=== PATIENT | female | born 1935 | race Two or more races ===

== ENCOUNTER 2017-10-05 07:26 | Inpatient (IN) | payer BC, MEDICARE ==
[~2017-10-05] VITALS: Ht 157.5 cm; Wt 59.0 kg
--- NOTE | 2017-10-05 07:30 | NUR ---
PATIENT BIB [facility] C/O RIGHT HIP PAIN, S/P GLF AT HOME. PATIENTS RIGHT LEG EXTERNALLY ROTATION AND SHORTENED. PATIENT IS A/OX 4. BREATHING EVEN AND UNLABORED. NO SOB. VITALS STABLE. SAFETY AND COMFORT MEASURES IN PLACE. AWAITING MD ORDERS.
[2017-10-05] MEDS ORDERED: HYDROMORPHONE INJ 0.5 MG/0.5 ML SYRINGE ONE ×2 (07:42→08:37)
[2017-10-05] MEDS ORDERED: ONDANSETRON HCL/PF 4 MG/2 ML VIAL ONE (07:42)
--- NOTE | 2017-10-05 07:48 | NUR ---
PATIENT MEDICATED PER MD ORDERS.
[2017-10-05 07:54] LABS: BASOPHILS % (AUTO) 0.5 % (0.0-2.0); EOSINOPHILS # (AUTO) 0.2 /CMM (0.0-0.7); EOSINOPHILS % (AUTO) 2.4 % (0.0-6.0); HEMATOCRIT 29 % (33-45); LYMPHOCYTES # (AUTO) 1.6 /CMM (0.8-4.8); LYMPHOCYTES % (AUTO) 18.8 % (20.0-44.0); MEAN CORPUSCULAR HEMOGLOBIN 32 PG (26.0-33.0); MEAN CORPUSCULAR HGB CONC 34 g/dl (31.0-36.0); MEAN CORPUSCULAR VOLUME 93 fL (82-100); MONOCYTES # (AUTO) 0.4 /CMM (0.1-1.30); MONOCYTES % (AUTO) 5.2 % (2.0-12.0); NEUTROPHILS # (AUTO) 6.1 /CMM (1.8-8.9); NEUTROPHILS % (AUTO) 73.1 % (43.0-81.0); PLATELET COUNT (AUTO) 104 /CMM (150-450); RDW COEFFICIENT OF VARIATION 15.8 (11.5-15.0); RED BLOOD CELL COUNT(AUTO) 3.18 MIL/uL (4.0-5.2); WHITE BLOOD COUNT (AUTO) 8.4 K/uL (4.3-11.0)
[2017-10-05] MEDS ORDERED: HYDROMORPHONE 1 MG/1 ML DISP.SYRIN IV ONE ×2 (08:00→09:00)
[2017-10-05] MEDS ORDERED: ONDANSETRON HCL/PF - ER 4 MG/2 ML VIAL IV ONE (08:00)
--- NOTE | 2017-10-05 08:02 | NUR ---
CIGAR MACHINE FEEDER AT BEDSIDE.
[2017-10-05 08:09] LABS: ALANINE AMINOTRANSFERASE 31 U/L (12-78); ALBUMIN 3.1 g/dL (3.4-5.0); ALKALINE PHOSPHATASE 127 U/L (46-116); ASPARTATE AMINOTRANSFERASE 31 U/L (15-37); BILIRUBIN,TOTAL 0.4 mg/dL (0.2-1.0); CARBON DIOXIDE 22 mmol/L (21-32); CHLORIDE 104 mmol/L (98-107); CREATININE 3.2 mg/dL (0.6-1.3); GLUCOSE 147 mg/dL (74-106); POTASSIUM 5.5 mmol/L (3.5-5.1); SODIUM SERUM 137 mmol/L (136-145); TOTAL PROTEIN, SERUM 7.1 g/dL (6.4-8.2)
[2017-10-05 08:11] LABS: UREA NITROGEN, BLOOD 93 mg/dL (7-18)
--- NOTE | 2017-10-05 08:19 | NUR ---
ANGÉLICA CALLED [phone] [facility] [employer] [address] BASS
--- NOTE | 2017-10-05 08:25 | NUR ---
CALLED [facility]
[2017-10-05] MEDS ORDERED: FURO-145 PO (08:27)
[2017-10-05] MEDS ORDERED: PRAM0.5T3 PO (08:27)
[2017-10-05] MEDS ORDERED: LIRA0.6P SQ (08:27)
[2017-10-05] MEDS ORDERED: LINA5TAB PO (08:27)
[2017-10-05] MEDS ORDERED: ISOS30TA6 PO (08:27)
[2017-10-05] MEDS ORDERED: CARV25TA2 PO (08:27)
[2017-10-05] MEDS ORDERED: CLOP75TA15 PO (08:27)
[2017-10-05] MEDS ORDERED: IV NS 0.9% 500 ML IV ONE (08:30)
--- NOTE | 2017-10-05 08:31 | NUR ---
16 FR orssi catheter inserted per sterile protocal. Immediate output 500ML of urine, yellow and clear.
[2017-10-05 08:34] LABS: INR 1.03 (0.87-1.13)
--- NOTE | 2017-10-05 08:40 | NUR ---
PATIENT ONCE AGAIN C/O PAIN. MD INFORMED, ORDERED REPEAT DOSE OF DILAUDID.
--- NOTE | 2017-10-05 09:14 | NUR ---
CALLED [phone] [facility] ITS [facility] CALL [id number]
[2017-10-05 09:21] LABS: APPEARANCE,URINE CLEAR (CLEAR); BILIRUBIN,URINE NEGATIVE (NEGATIVE); BLOOD, URINE NEGATIVE Ery/uL (NEGATIVE); COLOR,URINE YELLOW (YELLOW); KETONES,URINE NEGATIVE (NEGATIVE); LEUKOCYTE ESTERASE ,URINE NEGATIVE (NEGATIVE); NITRITE, URINE NEGATIVE (NEGATIVE); PH,URINE 5.5 (5.0-8.0); PROTEIN,URINE 2+ mg/dl (NEGATIVE); UGLUCOSE NEGATIVE (NEGATIVE); UROBILINOGEN,URINE 0.2 EU/dL (0.2)
--- NOTE | 2017-10-05 09:29 | NUR ---
PANEL ON-CALL PAGED
--- NOTE | 2017-10-05 09:30 | NUR ---
CALL BACK FROM DR Valentine AHUJA, WANTS PATIENT ADMITTED BY PANEL AND THEY WILL CONSULT
[2017-10-05 09:31] LABS: BACTERIA,URINE 2+ /HPF (None Seen); SQUAMOUS EPITHELIAL CELL,UR Few /HPF (None Seen); WBC,URINE NONE SEEN /HPF (0-3)
--- NOTE | 2017-10-05 10:43 | NUR ---
REPORT GIVEN TO FATOUMATA KU FOR ENDER UPON ADMISSION.
--- NOTE | 2017-10-05 10:59 | NUR ---
PATIENT TRANSPORTED TO [facility] VIA STRETCHER IN STABLE CONDITION. RN, FATOUMATA TO PROVIDE ENDER.
[2017-10-05 11:00] VITALS: BP 149/77
--- NOTE | 2017-10-05 11:30 | NUR ---
ADMISSION NOTE RECEIVED PT FROM ER. PT IS STABLE, ARRIVED IN [facility]. A/OX4, NO S/S OF RESP DISTRESS OR SOB. PT HAS C/O PAIN IN RIGHT HIP 5/10 ABLE TO TOLERATE AT THE MOMENT. SKIN ASSESSMENT PERFORMED, PHOTOS TAKEN AND PLACED IN CHART. DR. AGUAYO CONTACTED FOR ADMISSION ORDERS. PER MD NOTE, DR. GALINDO TO PERFORM FIXATION OF RIGHT HIP FRACTURE ON 10/06/17, PT TO BE NPO AT MIDNIGHT FOR PROCEDURE. CONSENTS SIGNED, COPIED AND PLACED IN CHART. PER MD ORDER, PAIN TO BE MANAGED WITH TRAMADOL, DUE TO CODEINE ALLERGY. ALL BLOOD THINNERS TO BE HELD. SAFETY MEASURES IN PLACE, CALL LIGHT WITHIN REACH. WILL CONTINUE TO MONITOR.
[2017-10-05] MEDS ORDERED: HYDROMORPHONE INJ 0.5 MG/0.5 ML SYRINGE IV PRN (13:30)
[2017-10-05] MEDS: TRAMADOL HCL 50 MG TABLET PO PRN ×2 (15:13→21:25)
[2017-10-05 16:00] VITALS: BP 139/66
[2017-10-05] MEDS ORDERED: SODIUM POLYSTYRENE SULFONATE 15 G/60 ML BOTTLE PO ONE (16:30)
[2017-10-05] MEDS: ACETAMINOPHEN 325 MG TABLET PO SCH ×2 (17:00→22:56)
--- NOTE | 2017-10-05 19:00 | NUR ---
RN NOTES RECEIVE PT IN BED, A/O X 4, STABLE, NO S/S OF DISTRESS, PATIENT KEPT COMFORTABLE AT THIS TIME, SAFETY MEASURES IN PLACE, CALL LIGHT WITHIN REACH, WILL CONTINUE TO MONITOR.
--- NOTE | 2017-10-05 19:18 | NUR ---
RN CLOSING NOTES PT IN BED RESTING. PT EXPERIENCING MILD SOB, O2 2L VIA NC STARTED. PERSONAL FINANCE INSTRUCTOR NURSE PRESENT AT TIME, MD TO BE CONTACTED REGARDING SOB. ALL PT NEEDS ANTICIPATED AND MET. SAFETY MEASURES IN PLACE, CALL LIGHT WITHIN REACH. WILL ENDORSE TO PERSONAL FINANCE INSTRUCTOR FOR ENDER.
[2017-10-05] MEDS ORDERED: Z GUARD REMEDY 2 OZ OINT TP PRN (19:30)
[2017-10-05] MEDS ORDERED: ACETAMINOPHEN 325 MG TABLET PO PRN (19:30)
[2017-10-05] MEDS ORDERED: ONDANSETRON HCL/PF 4 MG/2 ML VIAL IVP PRN (19:30)
[2017-10-05] MEDS ORDERED: MORPHINE SULFATE INJ 4 MG/ML DISP.SYRIN IV PRN (19:30)
[2017-10-05] MEDS ORDERED: MAGNESIUM HYDROXIDE 30 ML UDC PO PRN (19:30)
--- NOTE | 2017-10-05 19:30 | NUR ---
MS RN NOTES PT DENIES SOB COMFORTABLE WITH 2LPM VIA NC 02 SAT 100% AND REPOSITION
[2017-10-05 20:00] VITALS: BP 144/68
[2017-10-05] MEDS ORDERED: DEXTROSE 50%-WATER 50 ML DISP.SYRIN IV PRN (20:00)
[2017-10-05] MEDS: CARVEDILOL 12.5 MG TABLET PO SCH (21:00)
[2017-10-05] MEDS: PRAMIPEXOLE DI-HCL 0.25 MG TABLET PO SCH (21:19)
[2017-10-05] MEDS: BLOOD SUGAR DIAGNOSTIC 1 EACH STRIP IN SCH (21:25)
[2017-10-05] MEDS: INSULIN REGULAR, HUMAN 100 UNIT/ML 3 ML VIAL SQ PRN (21:26)
--- NOTE | 2017-10-05 21:57 | NUR ---
MS RN NOTES CARVEDILOL AND R INSULIN SLIDING SCALE NON ADMINISTRATION PER PATIENT SHE DOESN'T TAKE CARVEDILOL AND INSULIN PT A/O X4, EXPLAINED RISKS AND BENEFITS REFUSED. Marychuy MADE AWARE
--- NOTE | 2017-10-05 22:08 | NUR ---
MS RN NOTES PT STILL REFUSING BLOOD PRESSURE MEDICATION ACCORDING TO THE PT HER BUYING INTERN DR. PRESCOTT STOP ALL HER BP MEDICATIONS. EXPLAINED RISKS AND BENEFITS M.D MADE AWARE. PER PT SHE'S NOT TAKING IT ANYMORE EVER SINCE. PT A/O X4.
[2017-10-06] VITALS (10 sets, daily range): BP systolic 103–139; BP diastolic 45–66
[2017-10-06] MEDS: IV NS 0.9% 1,000 ML IV PRN ×2 (00:01→23:53)
[2017-10-06] MEDS: ACETAMINOPHEN 325 MG TABLET PO SCH ×4 (05:00→23:53)
[2017-10-06] MEDS: BLOOD SUGAR DIAGNOSTIC 1 EACH STRIP IN SCH ×4 (05:38→21:21)
[2017-10-06] MEDS: INSULIN REGULAR, HUMAN 100 UNIT/ML 3 ML VIAL SQ PRN ×4 (05:42→21:22)
--- NOTE | 2017-10-06 05:42 | NUR ---
MS RN NOTES NON ADMINISTRATION OF INSULIN PER SLIDING SCALE PT SHE IS NOT TAKING INSULIN AND PT NPO DIAGNOSIS
--- NOTE | 2017-10-06 06:24 | NUR ---
MS RN CLOSING NOTES PT COMFORTABLY ASLEEP IN BED AND EASILY AWAKEN, NOT IN RESPIRATORY DISTRESS ON 2LPM VIA NC 02 SAT AT 100% HEAD OF BED ELEVATED AT ALL TIMES FOR BETTER LUNG EXPANSION AND GOOD CIRCULATION. STABLE, NOT APPEAR IN DISTRESS. NEEDS ATTENDED AND ANTICIPATED. KEPT CLEAN AND DRY AND COMFORTABLE. NURSING CARE RENDERED. OFFLOAD HEELS AND ELBOWS AT ALL TIMES. FC DRAINING YELLOW VIA GRAVITY WITH NO SEDIMENTS NO HEMATURIA NO CLOUDINESS, NO C/O OF PAIN. ON LOW BED TO ENSURE SAFETY, CALL LIGHT WITHIN REACH, WILL ENDORSE TO THE NEXT SHIFT CONTINUE PLAN OF CARE.
[2017-10-06 06:35] LABS: BASOPHILS % (AUTO) 0.1 % (0.0-2.0); EOSINOPHILS # (AUTO) 0.2 /CMM (0.0-0.7); EOSINOPHILS % (AUTO) 2.3 % (0.0-6.0); HEMATOCRIT 28 % (33-45); HEMOGLOBIN 9.7 g/dL (11.5-14.8); LYMPHOCYTES # (AUTO) 1.6 /CMM (0.8-4.8); LYMPHOCYTES % (AUTO) 15.1 % (20.0-44.0); MEAN CORPUSCULAR HEMOGLOBIN 32 PG (26.0-33.0); MEAN CORPUSCULAR HGB CONC 34 g/dl (31.0-36.0); MEAN CORPUSCULAR VOLUME 93 fL (82-100); MONOCYTES # (AUTO) 0.4 /CMM (0.1-1.30); MONOCYTES % (AUTO) 4.2 % (2.0-12.0); NEUTROPHILS # (AUTO) 8.4 /CMM (1.8-8.9); NEUTROPHILS % (AUTO) 78.3 % (43.0-81.0); PLATELET COUNT (AUTO) 98 /CMM (150-450); RDW COEFFICIENT OF VARIATION 15.5 (11.5-15.0); RED BLOOD CELL COUNT(AUTO) 3.05 MIL/uL (4.0-5.2); WHITE BLOOD COUNT (AUTO) 10.7 K/uL (4.3-11.0)
[2017-10-06 06:48] LABS: ALANINE AMINOTRANSFERASE 27 U/L (12-78); ALBUMIN 2.5 g/dL (3.4-5.0); ALKALINE PHOSPHATASE 99 U/L (46-116); ASPARTATE AMINOTRANSFERASE 55 U/L (15-37); BILIRUBIN,TOTAL 0.6 mg/dL (0.2-1.0); CALCIUM, SERUM 7.1 mg/dL (8.5-10.1); CARBON DIOXIDE 18 mmol/L (21-32); CHLORIDE 108 mmol/L (98-107); CREATININE 3.3 mg/dL (0.6-1.3); GLUCOSE 150 mg/dL (74-106); MAGNESIUM 1.4 mg/dL (1.8-2.4); POTASSIUM 5.1 mmol/L (3.5-5.1); SODIUM SERUM 138 mmol/L (136-145); TOTAL PROTEIN, SERUM 5.9 g/dL (6.4-8.2)
[2017-10-06 06:51] LABS: UREA NITROGEN, BLOOD 89 mg/dL (7-18)
[2017-10-06 06:54] LABS: CHOLESTEROL 92 mg/dL (<200); HDL CHOLESTEROL 48 mg/dL (40-60); LDL 42 mg/dL (0-99); THYROID STIMULATING HORMONE 1.665 uIU/mL (0.358-3.74); TRIGLYCERIDES 76 mg/dL (30-150)
[2017-10-06 07:20] LABS: EOSINOPHILS % (MANUAL) 1 % (0-4); LYMPHOCYTES % (MANUAL) 12 % (16-48); MONOCYTES % (MANUAL) 8 % (0-11.0); NEUTROPHILS % (MANUAL) 79 (42-76)
--- NOTE | 2017-10-06 07:20 | NUR ---
MS RN OPENING NOTES PATIENT RECEIVED AWAKE IN BED IN NO ACUTE SIGNS OF DISTRESS. A/O X4, SAME ABLE TO MAKE NEEDS KNOWN, NO C/O PAIN OR DISCOMFORTS VOICED AT THIS TIME. PT FOR RIGHT HIP IM RODDING THIS MORNING. NPO MAINTAINED. ON 02 VIA N/C @ 2LPM, BREATHING EVEN AND UNLABORED. IVF OF NS @ 75ML/HR INFUSING TO RAC G#18, NO SIGNS OF INFILTRATION NOTED. HECTOR IN PLACE ACTIVELY DRAINING CLEAR YELLOW URINE TO BEDSIDE URINARY BAG. BED IN LOW/LOCKED POSITION WITH SIDE-RAILS UP X2. CALL LIGHT WITHIN EASY REACH. WILL CONTINUE TO MONITOR PT ACCORDINGLY.
[2017-10-06] MEDS ORDERED: BUPIVACAINE 0.5 % PF 150 MG/30 ML VIAL ONE (07:28)
[2017-10-06] MEDS ORDERED: BACITRACIN 50000 UNITS/VIAL ONE (07:28)
--- NOTE | 2017-10-06 07:44 | NUR ---
RN NOTES PATIENT JUST LEFT FOR RIGHT HIP IM RODDING SURGERY TO OPERATING ROOM VIA HER BED WHEELED BY O.R. NURSES. V/S STABLE AND IN NO ACUTE SIGNS OF DISTRESS.
[2017-10-06] MEDS: LINAGLIPTIN 5 MG TABLET PO SCH (09:00)
[2017-10-06] MEDS: CLOPIDOGREL BISULFATE 75 MG TABLET PO SCH (09:00)
[2017-10-06] MEDS: FUROSEMIDE 20 MG TABLET PO SCH (09:00)
[2017-10-06] MEDS: ISOSORBIDE MONONITRATE (30MG) 30 MG TAB.SR.24H PO SCH (09:00)
[2017-10-06] MEDS: CARVEDILOL 12.5 MG TABLET PO SCH ×2 (09:00→21:25)
[2017-10-06] MEDS ORDERED: HYDROMORPHONE 1 MG/1 ML DISP.SYRIN ONE (10:31)
[2017-10-06] MEDS ORDERED: ANCEF 1 GM/50 ML D5W IV SCH ×2 (11:00)
[2017-10-06] MEDS ORDERED: HYDROMORPHONE INJ 0.5 MG/0.5 ML SYRINGE IV PRN ×2 (11:00)
[2017-10-06] MEDS ORDERED: SENNOSIDES 8.6 MG TABLET PO PRN (11:00)
--- NOTE | 2017-10-06 11:14 | NUR ---
RN NOTES PT RETURNED FROM SURGERY AWAKE, ALERT AND ORIENTED X4 S/P RIGHT HIP IM RODDING OF HIP FRACTURE. TWO DRESSINGS ON RIGHT HIP INTACT, CLEAN AND DRY WITH NO ACTIVE BLEEDING NOTED. PT KEPT ON 02 VIA N/C AT 2LPM, BREATHING EVEN AND UNLABORED. V/S TAKEN; BP 131/56, P 86, R 18, T 98.1F AND SP02 98%. ALL POST-OP ORDERS BY MARLIN ALANIZ CARRIED OUT. WILL CONTINUE TO MONITOR.
[2017-10-06] MEDS: Magnesium 1GM/D5W 100ML PREMIX 100 ML IV SCH ×2 (12:39→13:38)
[2017-10-06] MEDS: ANCEF 1 GM/50 ML D5W IV SCH ×4 (15:49→23:52)
[2017-10-06] MEDS: DOCUSATE SODIUM 100 MG CAPSULE PO SCH (17:24)
--- NOTE | 2017-10-06 18:42 | NUR ---
MS RN CLOSING NOTES PATIENT AWAKE AND RESTING @ MODERATE HIGH BACKREST IN BED WITH FRIEND AT BEDSIDE. A/O X4, SAME ABLE TO MAKE NEEDS KNOWN. S/P RIGHT HIP IM RODDING THIS MORNING, 2 DRESSINGS ON SURGICAL INCISION SITES C/D/I WITH NO BLEEDING NOTED. ON 02 VIA N/C @ 2LPM, BREATHING EVEN AND UNLABORED. IVF OF NS @ 75ML/HR INFUSING TO RAC G#18, NO SIGNS OF INFILTRATION NOTED. HECTOR IN PLACE ACTIVELY DRAINING CLEAR YELLOW URINE TO BEDSIDE URINARY BAG. BED IN LOW/LOCKED POSITION WITH SIDE-RAILS UP X2. CALL LIGHT WITHIN EASY REACH. ALL NEEDS AND CARE ATTENDED WELL. WILL ENDORSED TO SERVICE DESK ASSOCIATE NURSE FOR ENDER.
--- NOTE | 2017-10-06 19:25 | NUR ---
RN OPEN NOTES RECEIVED PATIENT AWAKE IN BED, WITH FAMILY AT BEDSIDE. A/O X4. NO SIGNS OF DISTRESS OR DISCOMFORT. BREATHING EVEN AND UNLABORED. ON 2LPM O2 VIA NC. IV ACCESS IN RAC WITH NS INFUSING, PATENT AND INTACT, NO SIGNS OF REDNESS OR INFILTRATION. DRESSINGS ON R HIP C/D/I. BED IN LOW LOCKED POSITION WITH SIDE RAILS X2. CALL LIGHT WITHIN REACH. WILL CONTINUE TO MONITOR. Addendum: 10/07/17 at 0409 by JHONATAN NICOLE RN HAS F/C INTACT, DRAINING TO GRAVITY WITH CLEAR YELLOW FLUID.
[2017-10-06] MEDS: PRAMIPEXOLE DI-HCL 0.25 MG TABLET PO SCH (21:25)
[2017-10-06] MEDS: HYDROMORPHONE INJ 0.5 MG/0.5 ML SYRINGE IV PRN (23:57)
--- NOTE | 2017-10-06 23:57 | NUR ---
RN NOTES ADMINISTERED DILAUDID .5MG ORDERED FOR R HIP PAIN 02/18. VSS. WILL CONTINUE TO MONITOR.
[2017-10-07] VITALS (8 sets, daily range): BP systolic 109–132; BP diastolic 49–79
[2017-10-07] MEDS: ACETAMINOPHEN 325 MG TABLET PO SCH ×4 (06:28→23:00)
[2017-10-07] MEDS: BLOOD SUGAR DIAGNOSTIC 1 EACH STRIP IN SCH ×4 (06:29→21:40)
[2017-10-07] MEDS: INSULIN REGULAR, HUMAN 100 UNIT/ML 3 ML VIAL SQ PRN ×4 (06:30→21:40)
[2017-10-07 06:50] LABS: BASOPHILS % (AUTO) 0.2 % (0.0-2.0); EOSINOPHILS % (AUTO) 0.2 % (0.0-6.0); HEMATOCRIT 21 % (33-45); LYMPHOCYTES # (AUTO) 0.9 /CMM (0.8-4.8); LYMPHOCYTES % (AUTO) 8.6 % (20.0-44.0); MEAN CORPUSCULAR HEMOGLOBIN 31 PG (26.0-33.0); MEAN CORPUSCULAR HGB CONC 34 g/dl (31.0-36.0); MEAN CORPUSCULAR VOLUME 93 fL (82-100); MONOCYTES # (AUTO) 0.6 /CMM (0.1-1.30); MONOCYTES % (AUTO) 6.2 % (2.0-12.0); NEUTROPHILS # (AUTO) 8.9 /CMM (1.8-8.9); NEUTROPHILS % (AUTO) 84.8 % (43.0-81.0); PLATELET COUNT (AUTO) 79 /CMM (150-450); RDW COEFFICIENT OF VARIATION 16.2 (11.5-15.0); RED BLOOD CELL COUNT(AUTO) 2.22 MIL/uL (4.0-5.2); WHITE BLOOD COUNT (AUTO) 10.4 K/uL (4.3-11.0)
--- NOTE | 2017-10-07 06:50 | NUR ---
RN CLOSING NOTES PATIENT AWAKE IN BED. A/O X4. NO SIGNS OF DISTRESS OR DISCOMFORT. BREATHING EVEN AND UNLABORED. ON 2LPM O2 VIA NC. IV ACCESS IN RAC WITH NS INFUSING, PATENT AND INTACT, NO SIGNS OF REDNESS OR INFILTRATION. HAS F/C INTACT, DRAINING TO GRAVITY WITH CLEAR YELLOW FLUID NOTED. ALL NEEDS MET. NO SIGNIFICANT CHANGES THROUGH THE NIGHT. ASSISTED PATIENT WITH REPOSITIONING Q2H AND PRN. BED IN LOW LOCKED POSITION WITH SIDE RAILS X2. CALL LIGHT WITHIN REACH. WILL CONTINUE TO MONITOR. Addendum: 10/07/17 at 0657 by JHONATAN NICOLE RN WILL ENDORSE TO AM SHIFT FOR ENDER.
[2017-10-07 07:33] LABS: HEMOGLOBIN 6.9 g/dL (11.5-14.8)
[2017-10-07 07:34] LABS: CALCIUM, SERUM 6.8 mg/dL (8.5-10.1); CHLORIDE 105 mmol/L (98-107); CREATININE 3.5 mg/dL (0.6-1.3); GLUCOSE 175 mg/dL (74-106); PHOSPHORUS 4.5 mg/dL (2.5-4.9); POTASSIUM 4.6 mmol/L (3.5-5.1); SODIUM SERUM 137 mmol/L (136-145)
--- NOTE | 2017-10-07 07:41 | NUR ---
MS RN OPENING NOTES RECEIVED PT FROM NIGHTSHIFT NURSE IN STABLE CONDITION. PT IS A/O X4. NO SOB OR SIGNS OF DISTRESS NOTED. BREATHING IS EVEN AND UNLABORED. PT IS ON 2L VIA NC AND SATING WELL. SHE DENIES ANY DIZZINESS, WEAKNESS, OR PAIN AT THIS TIME. HECTOR CATHETER NOTED TO BE DRAINING CLEAR YELLOW URINE. DRESSING NOTED TO BE CLEAN, DRY, AND INTACT. IV NOTED TO RIGHT AC 18G AND INFUSING NS @ 75ML/HR. PT TOLERATING INFUSION WELL. NO REDNESS OR SIGNS OF INFILTRATION NOTED. BED IN LOW LOCKED POSITION, SIDE RAILS UP X2, CALL LIGHT WITHIN REACH. FAMILY AT BEDSIDE. WILL CONTINUE TO MONITOR.
[2017-10-07 07:57] LABS: CARBON DIOXIDE 17 mmol/L (21-32)
[2017-10-07 07:58] LABS: UREA NITROGEN, BLOOD 90 mg/dL (7-18)
[2017-10-07] MEDS: CLOPIDOGREL BISULFATE 75 MG TABLET PO SCH (09:00)
[2017-10-07] MEDS: CARVEDILOL 12.5 MG TABLET PO SCH ×2 (09:00→21:39)
[2017-10-07] MEDS: ISOSORBIDE MONONITRATE (30MG) 30 MG TAB.SR.24H PO SCH (09:00)
[2017-10-07] MEDS: ASPIRIN 81 MG TAB.CHEW PO SCH (09:00)
[2017-10-07 09:44] LABS: LYMPHOCYTES % (MANUAL) 11 % (16-48); MONOCYTES % (MANUAL) 2 % (0-11.0); NEUTROPHILS % (MANUAL) 87 (42-76)
[2017-10-07] MEDS: ANCEF 1 GM/50 ML D5W IV SCH ×2 (09:59)
[2017-10-07] MEDS: FUROSEMIDE 20 MG TABLET PO SCH (10:01)
[2017-10-07] MEDS: DOCUSATE SODIUM 100 MG CAPSULE PO SCH ×2 (10:01→17:45)
[2017-10-07] MEDS: LINAGLIPTIN 5 MG TABLET PO SCH (10:01)
[2017-10-07 10:34] LABS: BASOPHILS % (AUTO) 0.2 % (0.0-2.0); EOSINOPHILS % (AUTO) 0.2 % (0.0-6.0); HEMATOCRIT 22 % (33-45); HEMOGLOBIN 7.3 g/dL (11.5-14.8); LYMPHOCYTES # (AUTO) 1.2 /CMM (0.8-4.8); LYMPHOCYTES % (AUTO) 9.8 % (20.0-44.0); MEAN CORPUSCULAR HEMOGLOBIN 31 PG (26.0-33.0); MEAN CORPUSCULAR HGB CONC 33 g/dl (31.0-36.0); MEAN CORPUSCULAR VOLUME 94 fL (82-100); MONOCYTES # (AUTO) 0.6 /CMM (0.1-1.30); MONOCYTES % (AUTO) 5.2 % (2.0-12.0); NEUTROPHILS # (AUTO) 10.3 /CMM (1.8-8.9); NEUTROPHILS % (AUTO) 84.6 % (43.0-81.0); PLATELET COUNT (AUTO) 83 /CMM (150-450); RDW COEFFICIENT OF VARIATION 16.2 (11.5-15.0); RED BLOOD CELL COUNT(AUTO) 2.32 MIL/uL (4.0-5.2); WHITE BLOOD COUNT (AUTO) 12.2 K/uL (4.3-11.0)
[2017-10-07 10:47] LABS: IRON, SERUM 38 ug/dl (50-175); TOTAL IRON BINDING CAPACITY 141 ug/dl (250-450)
[2017-10-07 11:02] LABS: FERRITIN 724 ng/mL (8-388)
[2017-10-07] MEDS: HYDROMORPHONE INJ 0.5 MG/0.5 ML SYRINGE IV PRN (12:01)
--- NOTE | 2017-10-07 19:02 | NUR ---
MS RN CLOSING NOTES PT REMAINS INSTABLE CONDITION. ALL NEEDS MET DURING SHIFT AND ORDERS CARRIED OUT ACCORDINGLY. WOUND AND SKIN CARE RENDERED. PT RECEIVED 1 UNIT OF PRBCS ORDERED WITH NO TRANSFUSION REACTION NOTED. DRESSING REMAINS CLEAN, DRY AND INTACT. FAMILY REMAINS AT BEDSIDE. WILL ENDORSE TO NIGHTSHIFT NURSE FOR ENDER
--- NOTE | 2017-10-07 19:10 | NUR ---
RN OPEN NOTES RECEIVED PATIENT AWAKE IN BED, WITH FAMILY AT BEDSIDE. A/O X4. NO SIGNS OF DISTRESS OR DISCOMFORT. BREATHING EVEN AND UNLABORED. ON 2LPM O2 VIA NC. IV ACCESS IN RAC WITH NS INFUSING, PATENT AND INTACT, NO SIGNS OF REDNESS OR INFILTRATION. DRESSINGS ON R HIP C/D/I. BED IN LOW LOCKED POSITION WITH SIDE RAILS X2. CALL LIGHT WITHIN REACH. WILL CONTINUE TO MONITOR.
[2017-10-07] MEDS: PRAMIPEXOLE DI-HCL 0.25 MG TABLET PO SCH (21:40)
[2017-10-07] MEDS: ZOLPIDEM TARTRATE 5 MG TABLET PO PRN (23:10)
[2017-10-08] MEDS: ACETAMINOPHEN 325 MG TABLET PO SCH ×4 (05:00→22:11)
[2017-10-08] MEDS: BLOOD SUGAR DIAGNOSTIC 1 EACH STRIP IN SCH ×4 (06:51→21:53)
--- NOTE | 2017-10-08 07:13 | NUR ---
RN CLOSING NOTES PATIENT RESTING IN BED, EASILY AROUSABLE WITH FAMILY AT BEDSIDE. A/O X4. NO SIGN OF DISTRESS OR DISCOMFORT. BREATHING EVEN AND UNLABORED. ON 2LPM O2 VIA NC. IV ACCESS IN RAC WITH NS INFUSING, PATENT AND INTACT, NO SIGNS OF REDNESS OR INFILTRATION. DRESSINGS ON R HIP C/D/I. ALL NEEDS MET. NO SIGNIFICANT CHANGES THROUGH THE NIGHT. BED IN LOW LOCKED POSITION WITH SIDE RAILS X2. CALL LIGHT WITHIN REACH. WILL ENDORSE TO AM SHIFT FOR ENDER.
[2017-10-08 07:20] LABS: ALANINE AMINOTRANSFERASE 14 U/L (12-78); ALBUMIN 2.1 g/dL (3.4-5.0); ALKALINE PHOSPHATASE 97 U/L (46-116); ASPARTATE AMINOTRANSFERASE 49 U/L (15-37); BASOPHILS % (AUTO) 0.3 % (0.0-2.0); BILIRUBIN,TOTAL 0.4 mg/dL (0.2-1.0); CALCIUM, SERUM 6.8 mg/dL (8.5-10.1); CARBON DIOXIDE 18 mmol/L (21-32); CHLORIDE 105 mmol/L (98-107); CREATININE 3.6 mg/dL (0.6-1.3); EOSINOPHILS # (AUTO) 0.3 /CMM (0.0-0.7); EOSINOPHILS % (AUTO) 2.2 % (0.0-6.0); GLUCOSE 104 mg/dL (74-106); HEMATOCRIT 25 % (33-45); HEMOGLOBIN 8.4 g/dL (11.5-14.8); MAGNESIUM 1.9 mg/dL (1.8-2.4); MEAN CORPUSCULAR HEMOGLOBIN 31 PG (26.0-33.0); MEAN CORPUSCULAR HGB CONC 34 g/dl (31.0-36.0); MEAN CORPUSCULAR VOLUME 91 fL (82-100); MONOCYTES # (AUTO) 0.6 /CMM (0.1-1.30); MONOCYTES % (AUTO) 5.6 % (2.0-12.0); NEUTROPHILS # (AUTO) 9.5 /CMM (1.8-8.9); NEUTROPHILS % (AUTO) 82.9 % (43.0-81.0); PHOSPHORUS 5.4 mg/dL (2.5-4.9); PLATELET COUNT (AUTO) 88 /CMM (150-450); POTASSIUM 4.9 mmol/L (3.5-5.1); RDW COEFFICIENT OF VARIATION 16.6 (11.5-15.0); SODIUM SERUM 137 mmol/L (136-145); TOTAL PROTEIN, SERUM 5.7 g/dL (6.4-8.2); WHITE BLOOD COUNT (AUTO) 11.4 K/uL (4.3-11.0)
[2017-10-08 07:22] LABS: UREA NITROGEN, BLOOD 106 mg/dL (7-18)
--- NOTE | 2017-10-08 07:30 | NUR ---
MS RN NOTES RECEIVED PATIENT IN BED, ALERT ORIENTEDX 4. VERBALLY RESPONSIVE. NO ACUTE DISTRESS NOTED. BREATHING UNLABORED. NO SOB NOTED. IV ACCESS PATENT AND INTACT, NO REDNESS OR SWELLING ON THE SITE. HOB ELEVATED. SAFETY MEASURES IN PLACE. CALL LIGHT WITHIN REACH. WILL CONTINUE TO MONITOR ACCORDINGLY.
[2017-10-08 08:00] VITALS: BP 134/59
[2017-10-08] MEDS: DOCUSATE SODIUM 100 MG CAPSULE PO SCH ×2 (09:32→17:58)
[2017-10-08] MEDS: ASPIRIN 81 MG TAB.CHEW PO SCH (09:32)
[2017-10-08] MEDS: ISOSORBIDE MONONITRATE (30MG) 30 MG TAB.SR.24H PO SCH (09:36)
[2017-10-08] MEDS: LINAGLIPTIN 5 MG TABLET PO SCH (09:37)
[2017-10-08] MEDS: FUROSEMIDE 20 MG TABLET PO SCH (09:37)
[2017-10-08] MEDS: CARVEDILOL 12.5 MG TABLET PO SCH ×2 (09:37→21:14)
[2017-10-08] MEDS: CLOPIDOGREL BISULFATE 75 MG TABLET PO SCH (09:47)
[2017-10-08 09:49] LABS: EOSINOPHILS % (MANUAL) 2 % (0-4); LYMPHOCYTES % (MANUAL) 7 % (16-48); MONOCYTES % (MANUAL) 5 % (0-11.0); NEUTROPHILS % (MANUAL) 86 (42-76)
[2017-10-08] MEDS: TRAMADOL HCL 50 MG TABLET PO PRN (11:25)
[2017-10-08] MEDS: INSULIN REGULAR, HUMAN 100 UNIT/ML 3 ML VIAL SQ PRN ×3 (12:49→21:56)
[2017-10-08 16:00] VITALS: BP 113/44
--- NOTE | 2017-10-08 18:30 | NUR ---
MS RN NOTES PATIENT IN BED, ALERT ORIENTEDX 4. VERBALLY RESPONSIVE.FRIEND AT BEDSIDE.NO SOB NOTED NO ACUTE DISTRESS NOTED. BREATHING UNLABORED. IV ACCESS PATENT AND INTACT, NO REDNESS OR SWELLING ON THE SITE. DUE MEDICATIONS GIVEN, NO ASE NOTED. NEEDS ATTENDED AND ANTICIPATED. HOB ELEVATED. SAFETY MEASURES IN PLACE. CALL LIGHT WITHIN REACH. WILL CONTINUE TO MONITOR ACCORDINGLY. WILL ENDORSE TO ALIGNER FOR CONTINUITY OF CARE.
[2017-10-08] MEDS: IV NS 0.9% 1,000 ML IV PRN (18:42)
--- NOTE | 2017-10-08 19:30 | NUR ---
RN NOTES RECEIVED PATIENT IN BED AWAKE, AO X 3, ABLE TO MAKE NEEDS KNOWN. NO ACUTE DISTRESS NOTED. DENIES ANY PAIN AT THIS TIME. IV SITE PATENT, INTACT; IVF INFUSING ORDERED. NO SYMPTOMS OF HYPER/HYPOGLYCEMIA. SAFETY REMINDERS GIVEN. ON LOW BED WITH BILATERAL UPPER SIDE RAILS UP. CALL GASCA WITHIN EASY REACH. WILL CONTINUE TO MONITOR.
[2017-10-08 20:00] VITALS: BP 114/58
[2017-10-08] MEDS: PRAMIPEXOLE DI-HCL 0.25 MG TABLET PO SCH (21:14)
[2017-10-08 21:15] LABS: CREATININE, URINE 61.4 MG/DL (30.0-125.0)
[2017-10-08] MEDS: ZOLPIDEM TARTRATE 5 MG TABLET PO PRN (21:54)
[2017-10-09] MEDS: ACETAMINOPHEN 325 MG TABLET PO SCH ×4 (04:49→22:03)
[2017-10-09] MEDS: BLOOD SUGAR DIAGNOSTIC 1 EACH STRIP IN SCH ×4 (06:37→21:50)
--- NOTE | 2017-10-09 07:53 | NUR ---
MS/RN OPENING NOTE PATIENT IN BED IN STABLE CONDITION. A/O X 4. NO SIGNS OF ACUTE DISTRESS. NO COMPLAIN OF PAIN OR DISCOMFORT. ALL NEEDS ATTENDED TO. CALL LIGHT WITHIN REACH. WILL CONTINUE TO MONITOR TO ENSURE SAFETY.
[2017-10-09 08:00] VITALS: BP 123/57
[2017-10-09] MEDS: CARVEDILOL 12.5 MG TABLET PO SCH ×2 (09:26→21:48)
[2017-10-09] MEDS: ISOSORBIDE MONONITRATE (30MG) 30 MG TAB.SR.24H PO SCH (09:27)
[2017-10-09] MEDS: CLOPIDOGREL BISULFATE 75 MG TABLET PO SCH (09:27)
[2017-10-09] MEDS: LINAGLIPTIN 5 MG TABLET PO SCH (09:27)
[2017-10-09] MEDS: DOCUSATE SODIUM 100 MG CAPSULE PO SCH ×2 (09:27→16:58)
[2017-10-09] MEDS: ASPIRIN 81 MG TAB.CHEW PO SCH (09:27)
[2017-10-09] MEDS: FUROSEMIDE 40 MG/4 ML VIAL IV SCH ×2 (11:42→16:58)
[2017-10-09] MEDS: INSULIN REGULAR, HUMAN 100 UNIT/ML 3 ML VIAL SQ PRN ×3 (12:48→21:58)
[2017-10-09 16:00] VITALS: BP 115/58
--- NOTE | 2017-10-09 16:45 | NUR ---
MS/RN HECTOR CATHETER ORDER SPOKE WITH TAMEKA LENZ AND ASKED IF OKAY TO REMOVE HECTOR. PER TAMEKA LENZ, NO PLEASE KEEP THE HECTOR CATHETER IN SECONDARY TO PATIENT MIGHT HAVE POSSIBLE SURGERY PROCEDURE TOMORROW.
--- NOTE | 2017-10-09 18:40 | NUR ---
MS/RN CLOSING NOTE PATIENT IN BED IN STALE CONDITION. A/O X 4. NO SIGNS OF ACUTE DISTRESS. NO COMPLAIN OF PAIN OR DISCOMFORT. ALL NEEDS ATTENDED TO. CALL LIGHT WITHIN REACH. WILL ENDORSE TO NEXT SHIFT FOR CONTINUITY OF CARE.
--- NOTE | 2017-10-09 19:20 | NUR ---
MS/RN OPENING NOTE RECEIVED PATIENT IN BED IN STABLE CONDITION. A/O X 4. NO SIGNS OF ACUTE DISTRESS. CAREGIVER AT BED SIDE. IV SITE ON RIGHT WRIST INTACT AND PATENT. NO COMPLAIN OF PAIN OR DISCOMFORT. ALL NEEDS ATTENDED TO. CALL LIGHT WITHIN REACH. WILL CONTINUE TO MONITOR TO ENSURE SAFETY.
[2017-10-09 20:00] VITALS: BP 127/63
[2017-10-09] MEDS: PRAMIPEXOLE DI-HCL 0.25 MG TABLET PO SCH (21:49)
[2017-10-09 23:33] LABS: CALCIUM, SERUM 6.5 mg/dL (8.5-10.1); CARBON DIOXIDE 16 mmol/L (21-32); CHLORIDE 105 mmol/L (98-107); CREATININE 3.6 mg/dL (0.6-1.3); GLUCOSE 153 mg/dL (74-106); SODIUM SERUM 137 mmol/L (136-145)
[2017-10-09 23:58] LABS: UREA NITROGEN, BLOOD 118 mg/dL (7-18)
--- NOTE | 2017-10-09 23:58 | NUR ---
relayed pt's bun : 118 to melania knutson, with nno at this time.
[2017-10-10] MEDS: TRAMADOL HCL 50 MG TABLET PO PRN (03:31)
[2017-10-10] MEDS: ACETAMINOPHEN 325 MG TABLET PO SCH ×4 (05:00→23:00)
--- NOTE | 2017-10-10 05:04 | NUR ---
pt refused tylenol , risk and benefits explained. pt still refused x 3, pt is a/o x 4. will cont to monitor.
[2017-10-10] MEDS: BLOOD SUGAR DIAGNOSTIC 1 EACH STRIP IN SCH ×4 (06:12→21:34)
[2017-10-10 06:41] LABS: BASOPHILS % (AUTO) 0.4 % (0.0-2.0); EOSINOPHILS # (AUTO) 0.3 /CMM (0.0-0.7); EOSINOPHILS % (AUTO) 3.6 % (0.0-6.0); HEMATOCRIT 23 % (33-45); HEMOGLOBIN 7.7 g/dL (11.5-14.8); LYMPHOCYTES # (AUTO) 0.9 /CMM (0.8-4.8); LYMPHOCYTES % (AUTO) 13.1 % (20.0-44.0); MEAN CORPUSCULAR HEMOGLOBIN 31 PG (26.0-33.0); MEAN CORPUSCULAR HGB CONC 34 g/dl (31.0-36.0); MEAN CORPUSCULAR VOLUME 92 fL (82-100); MONOCYTES # (AUTO) 0.5 /CMM (0.1-1.30); MONOCYTES % (AUTO) 7.6 % (2.0-12.0); NEUTROPHILS # (AUTO) 5.2 /CMM (1.8-8.9); NEUTROPHILS % (AUTO) 75.3 % (43.0-81.0); PLATELET COUNT (AUTO) 116 /CMM (150-450); RDW COEFFICIENT OF VARIATION 16.5 (11.5-15.0); RED BLOOD CELL COUNT(AUTO) 2.46 MIL/uL (4.0-5.2); WHITE BLOOD COUNT (AUTO) 6.9 K/uL (4.3-11.0)
--- NOTE | 2017-10-10 06:45 | NUR ---
RN NOTES PATIENT IN BED, AWAKE, A/O X 4. VERBALLY RESPONSIVE. IN STABLE CONDITION. NO SIGNS OF ACUTE DISTRESS. IV SITE ON RIGHT WRIST INTACT AND PATENT. NO COMPLAIN OF PAIN OR DISCOMFORT. ALL NEEDS ATTENDED TO. CALL LIGHT WITHIN REACH. WILL ENDORSE TO NEXT SHIFT FOR ENDER.
[2017-10-10 07:27] LABS: CALCIUM, SERUM 6.9 mg/dL (8.5-10.1); CARBON DIOXIDE 17 mmol/L (21-32); CHLORIDE 108 mmol/L (98-107); CREATININE 3.5 mg/dL (0.6-1.3); GLUCOSE 97 mg/dL (74-106); MAGNESIUM 1.9 mg/dL (1.8-2.4); POTASSIUM 5.1 mmol/L (3.5-5.1); SODIUM SERUM 140 mmol/L (136-145)
[2017-10-10 07:38] LABS: UREA NITROGEN, BLOOD 115 mg/dL (7-18)
[2017-10-10 08:00] VITALS: BP 124/54
[2017-10-10] MEDS: FUROSEMIDE 40 MG/4 ML VIAL IV SCH ×2 (08:53→17:21)
[2017-10-10] MEDS: ASPIRIN 81 MG TAB.CHEW PO SCH (08:54)
[2017-10-10] MEDS: DOCUSATE SODIUM 100 MG CAPSULE PO SCH ×2 (08:54→17:21)
[2017-10-10] MEDS: CARVEDILOL 12.5 MG TABLET PO SCH ×2 (08:54→21:33)
[2017-10-10] MEDS: CLOPIDOGREL BISULFATE 75 MG TABLET PO SCH (08:54)
[2017-10-10] MEDS: LINAGLIPTIN 5 MG TABLET PO SCH (08:54)
[2017-10-10] MEDS: ISOSORBIDE MONONITRATE (30MG) 30 MG TAB.SR.24H PO SCH (08:54)
[2017-10-10] MEDS: HYDROCODONE/APAP 5/325MG 1 EACH TABLET PO PRN ×2 (09:07→14:08)
[2017-10-10] MEDS ORDERED: EPOETIN ALFA (20,000 UNIT) 20,000 UNIT/ML VIAL SQ ONE (12:00)
[2017-10-10] MEDS: SEVELAMER CARBONATE 800 MG TABLET PO SCH ×2 (12:22→17:21)
[2017-10-10] MEDS: INSULIN REGULAR, HUMAN 100 UNIT/ML 3 ML VIAL SQ PRN ×2 (12:22→21:46)
[2017-10-10 16:00] VITALS: BP 129/63
--- NOTE | 2017-10-10 18:36 | NUR ---
M/S RN - Closing Notes Patient awake, A/O x 4, remain afebrile, reports moderate pain on right hip incision site, Shirley 1 tab given as ordered. Right hip dressing c/d/i without drainage, no surrounding erythema, or excess warmth. Skin on BLE is warm to touch, negative calf tenderness, negative for edema, sensation on both lower ext are intact. Right wrist saline lock with no signs of infiltration. Fall precautions maintained. All needs anticipated and met. Will continue with current medical management.
--- NOTE | 2017-10-10 19:18 | NUR ---
RN NOTES RECEIVED PATIENT IN BED IN STABLE CONDITION. A/O X 4. NO SIGNS OF ACUTE DISTRESS. CAREGIVER AT BED SIDE. IV SITE ON RIGHT WRIST INTACT AND PATENT. NO S/S OF INFILTRATION NOTED. NO COMPLAIN OF PAIN OR DISCOMFORT. NO S/S OF HYPO/ HYPERGLYCEMIA NOTED. ALL NEEDS ATTENDED AND MET. SAFETY PRECAUTIONS OBSERVED. CALL LIGHT WITHIN REACH. WILL CONTINUE TO MONITOR TO ENSURE SAFETY.
[2017-10-10 20:00] VITALS: BP 151/67
[2017-10-10] MEDS: PRAMIPEXOLE DI-HCL 0.25 MG TABLET PO SCH (21:34)
--- NOTE | 2017-10-10 23:45 | NUR ---
PT REFUSED TYLENOL , RISK AND BENEFITS EXPLAINED, PT STILL REFUSED X 3. PT DENIES ANY PAIN OR DISCOMFORT AT TGHIS TIME. WILL CONT TO MONITOR.
[2017-10-11] MEDS: ACETAMINOPHEN 325 MG TABLET PO SCH ×4 (04:43→23:00)
--- NOTE | 2017-10-11 04:43 | NUR ---
PT REFUSED TYLENOL , RISK AND BENEFITS EXPLAINED, PT STILL REFUSED X 3. PT DENIES ANY PAIN OR DISCOMFORT AT TGHIS TIME. WILL CONT TO MONITOR.
--- NOTE | 2017-10-11 05:30 | NUR ---
MS RN NOTES MORNING CARE DONE. PT DENIES ANY PAIN OR DISCOMFORT. ALL NEEDS ATTENDED AND MET. CALL LIGHT WITHIN REACH. WILL CONTINUE TO MONITOR.
[2017-10-11] MEDS: BLOOD SUGAR DIAGNOSTIC 1 EACH STRIP IN SCH ×4 (06:06→21:51)
[2017-10-11] MEDS: INSULIN REGULAR, HUMAN 100 UNIT/ML 3 ML VIAL SQ PRN ×3 (06:26→22:00)
[2017-10-11 06:28] LABS: CARBON DIOXIDE 16 mmol/L (21-32); CHLORIDE 106 mmol/L (98-107); CREATININE 3.6 mg/dL (0.6-1.3); GLUCOSE 150 mg/dL (74-106); POTASSIUM 5.5 mmol/L (3.5-5.1); SODIUM SERUM 140 mmol/L (136-145)
[2017-10-11 06:30] LABS: UREA NITROGEN, BLOOD 111 mg/dL (7-18)
--- NOTE | 2017-10-11 06:57 | NUR ---
RN NOTES PATIENT IN BED IN STABLE CONDITION. AWAKE, WATCHING TV AT THIS TIME. A/O X 4. NO SIGNS OF ACUTE DISTRESS. IV SITE ON RIGHT WRIST INTACT AND PATENT. NO S/S OF INFILTRATION NOTED. NO COMPLAIN OF PAIN OR DISCOMFORT. NO S/S OF HYPO/ HYPERGLYCEMIA NOTED. ALL NEEDS ATTENDED AND MET. SAFETY PRECAUTIONS OBSERVED. CALL LIGHT WITHIN REACH. WILL ENDORSE TO NEXT SHIFT FOR ENDER.
[2017-10-11 08:00] VITALS: BP 122/56
--- NOTE | 2017-10-11 08:00 | NUR ---
RN OPEN NOTES RECEIVED REPORT FROM UTILITY ACCOUNTS DIRECTOR NURSE. PATIENT IS IN BED, AWAKE AND ORIENTED TO SELF, TIME AND LOCATION . BED IN LOW POSITION, LOCKED AND TWO SIDE RAILS ARE UP. CALL LIGHT WITHIN REACH FOR SAFETY. NO SIGNS AND SYMPTOMS OF DISTRESS. WILL CONTINUE TO MONITOR AND ASSESS PATIENT.
[2017-10-11] MEDS: DOCUSATE SODIUM 100 MG CAPSULE PO SCH ×2 (08:51→17:00)
[2017-10-11] MEDS: CLOPIDOGREL BISULFATE 75 MG TABLET PO SCH (08:51)
[2017-10-11] MEDS: LINAGLIPTIN 5 MG TABLET PO SCH (08:51)
[2017-10-11] MEDS: SEVELAMER CARBONATE 800 MG TABLET PO SCH ×3 (08:51→17:39)
[2017-10-11] MEDS: ASPIRIN 81 MG TAB.CHEW PO SCH (08:51)
[2017-10-11] MEDS: ISOSORBIDE MONONITRATE (30MG) 30 MG TAB.SR.24H PO SCH (08:51)
[2017-10-11] MEDS: CARVEDILOL 12.5 MG TABLET PO SCH ×2 (08:52→21:50)
[2017-10-11] MEDS: FUROSEMIDE 40 MG/4 ML VIAL IV SCH ×2 (08:53→17:00)
[2017-10-11] MEDS ORDERED: EPOETIN ALFA (10,000 UNIT) 10,000 UNIT/ML VIAL IV ONE ×2 (11:00→17:00)
[2017-10-11 11:39] LABS: BASOPHILS % (AUTO) 0.3 % (0.0-2.0); EOSINOPHILS # (AUTO) 0.1 /CMM (0.0-0.7); EOSINOPHILS % (AUTO) 1.5 % (0.0-6.0); HEMATOCRIT 24 % (33-45); HEMOGLOBIN 8.1 g/dL (11.5-14.8); LYMPHOCYTES # (AUTO) 1.2 /CMM (0.8-4.8); MEAN CORPUSCULAR HEMOGLOBIN 31 PG (26.0-33.0); MEAN CORPUSCULAR HGB CONC 34 g/dl (31.0-36.0); MEAN CORPUSCULAR VOLUME 92 fL (82-100); MONOCYTES # (AUTO) 0.6 /CMM (0.1-1.30); MONOCYTES % (AUTO) 8.8 % (2.0-12.0); NEUTROPHILS % (AUTO) 72.4 % (43.0-81.0); PLATELET COUNT (AUTO) 137 /CMM (150-450); RDW COEFFICIENT OF VARIATION 16.3 (11.5-15.0); RED BLOOD CELL COUNT(AUTO) 2.64 MIL/uL (4.0-5.2)
[2017-10-11] MEDS: HYDROMORPHONE INJ 0.5 MG/0.5 ML SYRINGE IV PRN (14:48)
[2017-10-11 16:00] VITALS: BP 135/64
--- NOTE | 2017-10-11 16:22 | NUR ---
EPOGEN WAS NOT AVAILABLE TILL NOW. CALLED PHARMACY X3. THEY WILL BERING IT UP BEFORE 1700
--- NOTE | 2017-10-11 17:39 | NUR ---
HD RN AT BED SIDE. 1700 AUGUSTINA HELD. HD RN WILL ADMINISTER EPOGEN AT THE END OF DIALYSIS
--- NOTE | 2017-10-11 19:30 | NUR ---
HD COMPLETED. NO FLUID REMOVED. CLEANED ONLY
--- NOTE | 2017-10-11 19:30 | NUR ---
RN NOTES RECEIVED PATIENT IN BED IN STABLE CONDITION. AWAKE, A/O X 4. NO SIGNS OF ACUTE DISTRESS NOR SOB. CAREGIVER AT BED SIDE. IV SITE ON RAC INTACT AND PATENT. FLUSHED WITH NS, NO S/S OF INFILTRATION NOTED. NO COMPLAIN OF PAIN OR DISCOMFORT. NO S/S OF HYPO/ HYPERGLYCEMIA NOTED. ON S/P HD NO OUTPUT. ALL NEEDS ATTENDED AND MET. SAFETY PRECAUTIONS OBSERVED. CALL LIGHT WITHIN REACH. WILL CONTINUE TO MONITOR TO ENSURE SAFETY.
--- NOTE | 2017-10-11 19:42 | NUR ---
RN CLOSING NOTES REPORT GAVE TO SPECTRAL SCIENTIST NURSE FOR ENDER. PATIENT KEPT CLEAN AND DRY AND SAFE. NO NEW CONCERNS DURING THE SHIFT. BED IN LOW POSITION, LOCKED AND TWO SIDE RAILS ARE UP. CALL LIGHT WITHIN REACH FOR SAFETY.
[2017-10-11 20:00] VITALS: BP_SYST 125; BP_SYST 144; BP_DIAS 66; BP_DIAS 90
[2017-10-11] MEDS: PRAMIPEXOLE DI-HCL 0.25 MG TABLET PO SCH (21:50)
--- NOTE | 2017-10-11 23:46 | NUR ---
PT REFUSED TYLENOL, RISK AND BENEFITS EXPLAINED, PT STILL REFUSED. PT IS A/O X 4.
[2017-10-12 04:00] VITALS: BP 116/61
[2017-10-12] MEDS: ACETAMINOPHEN 325 MG TABLET PO SCH ×4 (05:00→23:00)
--- NOTE | 2017-10-12 05:16 | NUR ---
PT REFUSED TYLENOL, RISK AND BENEFITS EXPLAINED. PT STILL REFUSED, PT IS A/O X 4.
[2017-10-12] MEDS: BLOOD SUGAR DIAGNOSTIC 1 EACH STRIP IN SCH ×4 (06:01→21:41)
[2017-10-12] MEDS: INSULIN REGULAR, HUMAN 100 UNIT/ML 3 ML VIAL SQ PRN ×3 (06:04→21:44)
[2017-10-12 06:44] LABS: CALCIUM, SERUM 7.1 mg/dL (8.5-10.1); CARBON DIOXIDE 26 mmol/L (21-32); CHLORIDE 105 mmol/L (98-107); CREATININE 2.4 mg/dL (0.6-1.3); GLUCOSE 142 mg/dL (74-106); POTASSIUM 4.4 mmol/L (3.5-5.1); SODIUM SERUM 140 mmol/L (136-145); UREA NITROGEN, BLOOD 66 mg/dL (7-18)
--- NOTE | 2017-10-12 07:09 | NUR ---
RN NOTES PATIENT IN BED IN STABLE CONDITION. AWAKE, A/O X 4. NO SIGNS OF ACUTE DISTRESS NOR SOB. IV SITE ON RAC INTACT AND PATENT. FLUSHED WITH NS, NO S/S OF INFILTRATION NOTED. NO COMPLAIN OF PAIN OR DISCOMFORT. NO S/S OF HYPO/ HYPERGLYCEMIA NOTED. ALL NEEDS ATTENDED AND MET. SAFETY PRECAUTIONS OBSERVED. CALL LIGHT WITHIN REACH. ENDORSED TO NEXT SHIFT FOR ENDER.
--- NOTE | 2017-10-12 07:20 | NUR ---
RN OPEN NOTES RECEIVED REPORT FROM FORMULATION TECHNICIAN NURSE. PATIENT IS IN BED, WITH HER EYES CLOSED. EASILY AROUSED TO CALLING HER NAME. NO SIGNS AND SYMPTOMS OF DISTRESS. BREATHING IS NON LABOR AND EQUAL. BED IN LOW POSITION, LOCKED AND TWO SIDE RAILS ARE UP FOR SAFETY. CALL LIGHT WITHIN REACH. WILL CONTINUE TO MONITOR AND ASSESS PATIENT
[2017-10-12 08:00] VITALS: BP 119/48
[2017-10-12] MEDS: FUROSEMIDE 40 MG/4 ML VIAL IV SCH ×2 (08:21→16:39)
[2017-10-12] MEDS: ASPIRIN 81 MG TAB.CHEW PO SCH (08:21)
[2017-10-12] MEDS: ISOSORBIDE MONONITRATE (30MG) 30 MG TAB.SR.24H PO SCH (08:22)
[2017-10-12] MEDS: CARVEDILOL 12.5 MG TABLET PO SCH ×2 (08:22→21:41)
[2017-10-12] MEDS: CLOPIDOGREL BISULFATE 75 MG TABLET PO SCH (08:22)
[2017-10-12] MEDS: DOCUSATE SODIUM 100 MG CAPSULE PO SCH ×2 (08:29→16:40)
[2017-10-12] MEDS: LINAGLIPTIN 5 MG TABLET PO SCH (08:29)
[2017-10-12] MEDS: SEVELAMER CARBONATE 800 MG TABLET PO SCH ×3 (08:29→17:57)
[2017-10-12] MEDS: TRAMADOL HCL 50 MG TABLET PO PRN (11:44)
--- NOTE | 2017-10-12 13:00 | NUR ---
HD RN AT BEDSIDE TO START DIALYSIS
--- NOTE | 2017-10-12 16:00 | NUR ---
DIALYSIS COMPLETED. 2500ML REMOVED
--- NOTE | 2017-10-12 19:29 | NUR ---
RN CLOSING NOTES REPORT ENDORSED TO SHOE FITTER NURSE. PATIENT IS IN BED. ALERT AND ORIENTED TO NAME, PLACE AND TIME. NO SIGNS AND SYMPTOMS OF DISTRESS. BREATHING IN NON LABOR AND EQUAL. PATIENT KEPT CLEAN DRY AND SAFE. ALL NURSING CARE ANTICIPATED AND ATTENDED FOR. BED IN LOW POSITION, LOCKED AND TWO SIDE RAILS ARE UP. CALL LIGHT WITHIN REACH FOR SAFETY.
--- NOTE | 2017-10-12 19:32 | NUR ---
MS/RN NOTES RECEIVED PT. LYING IN BED. AWAKE, ALERT AND ORIENTED X4. BREATHING EVEN AND UNLABORED ON 2LPM O2 VIA NC. NO SOB, RESPIRATORY DISTRESS OR COMPLAINTS OF PAIN NOTED AT THIS TIME. PT. WITH RIGHT AC 22 GAUGE IV SALINE LOCK PRESENT, PATENT AND INTACT. BED LOCKED AND IN LOWEST POSITION, SIDE RAILS UP X2, CALL LIGHT WITHIN REACH, WILL CONTINUE TO MONITOR.
[2017-10-12 20:00] VITALS: BP 125/51
[2017-10-12] MEDS: PRAMIPEXOLE DI-HCL 0.25 MG TABLET PO SCH (21:40)
[2017-10-13 04:00] VITALS: BP 118/60
[2017-10-13] MEDS: ACETAMINOPHEN 325 MG TABLET PO SCH ×4 (05:00→23:00)
[2017-10-13 06:46] LABS: CALCIUM, SERUM 7.3 mg/dL (8.5-10.1); CARBON DIOXIDE 27 mmol/L (21-32); CHLORIDE 108 mmol/L (98-107); CREATININE 2.3 mg/dL (0.6-1.3); GLUCOSE 101 mg/dL (74-106); POTASSIUM 4.4 mmol/L (3.5-5.1); SODIUM SERUM 145 mmol/L (136-145); UREA NITROGEN, BLOOD 44 mg/dL (7-18)
--- NOTE | 2017-10-13 06:46 | NUR ---
MS/RN NOTES PT. IS LYING IN BED RESTING. BREATHING EVEN AND UNLABORED ON 2LPM O2 VIA NC. NO SOB, RESPIRATORY DISTRESS OR COMPLAINTS OF PAIN NOTED AT THIS TIME. PT. WITH RIGHT AC 22 GAUGE IV SALINE LOCK PRESENT, PATENT AND INTACT. ALL PT. NEEDS MET. NO S/S OF HYPO/HYPERGLYCEMIA NOTED AT THIS TIME AND THROUGHOUT SHIFT. GLUCOMETERS NOT WORKING HOSPITAL WIDE, WILL AWAIT FOR MORNING BMP RESULTS TO ASSESS PT. GLUCOSE LEVEL. WILL ENDORSE TO DAYSHIFT NURSE TO ADMINISTER INSULIN PER SLIDING SCALE. BED LOCKED AND IN LOWEST POSITION, SIDE RAILS UP X2, CALL LIGHT WITHIN REACH, WILL ENDORSE TO DAYSHIFT NURSE FOR CONTINUITY OF CARE.
[2017-10-13 06:53] LABS: BASOPHILS % (AUTO) 0.5 % (0.0-2.0); EOSINOPHILS # (AUTO) 0.2 /CMM (0.0-0.7); EOSINOPHILS % (AUTO) 3.4 % (0.0-6.0); HEMATOCRIT 22 % (33-45); HEMOGLOBIN 7.6 g/dL (11.5-14.8); LYMPHOCYTES # (AUTO) 0.9 /CMM (0.8-4.8); LYMPHOCYTES % (AUTO) 15.2 % (20.0-44.0); MEAN CORPUSCULAR HEMOGLOBIN 32 PG (26.0-33.0); MEAN CORPUSCULAR HGB CONC 34 g/dl (31.0-36.0); MEAN CORPUSCULAR VOLUME 93 fL (82-100); MONOCYTES # (AUTO) 0.8 /CMM (0.1-1.30); MONOCYTES % (AUTO) 13.9 % (2.0-12.0); NEUTROPHILS # (AUTO) 4.1 /CMM (1.8-8.9); PLATELET COUNT (AUTO) 123 /CMM (150-450); RDW COEFFICIENT OF VARIATION 16.9 (11.5-15.0); RED BLOOD CELL COUNT(AUTO) 2.41 MIL/uL (4.0-5.2); WHITE BLOOD COUNT (AUTO) 6.1 K/uL (4.3-11.0)
[2017-10-13] MEDS: BLOOD SUGAR DIAGNOSTIC 1 EACH STRIP IN SCH ×4 (07:18→21:55)
[2017-10-13 08:00] VITALS: BP 120/55
[2017-10-13] MEDS: LINAGLIPTIN 5 MG TABLET PO SCH (08:10)
[2017-10-13] MEDS: ASPIRIN 81 MG TAB.CHEW PO SCH (08:10)
[2017-10-13] MEDS: DOCUSATE SODIUM 100 MG CAPSULE PO SCH ×2 (08:10→16:54)
[2017-10-13] MEDS: SEVELAMER CARBONATE 800 MG TABLET PO SCH ×3 (08:10→16:53)
[2017-10-13] MEDS: CLOPIDOGREL BISULFATE 75 MG TABLET PO SCH (08:10)
--- NOTE | 2017-10-13 08:51 | NUR ---
RN OPEN NOTES RECEIVED REPORT FROM DESIGN ASSEMBLER NURSE. PATIENT IS AWAKE IN BED. PATIENT IS ALERT AND ORIENTED TO NAME PLACE AND TIME. NO SIGNS AND SYMPTOMS OF DISTRESS. BED IN LOW POSITION, LOCKED AND TWO SIDE RAILS ARE UP. CALL LIGHT WITHIN REACH FOR SAFETY. WILL CONTINUE TO MONITOR AND ASSESS PATIENT
[2017-10-13] MEDS: CARVEDILOL 12.5 MG TABLET PO SCH ×2 (09:00→21:55)
[2017-10-13] MEDS: FUROSEMIDE 40 MG/4 ML VIAL IV SCH ×2 (09:00→16:54)
[2017-10-13] MEDS: ISOSORBIDE MONONITRATE (30MG) 30 MG TAB.SR.24H PO SCH (09:00)
--- NOTE | 2017-10-13 09:21 | NUR ---
GAVE ALL 0900 MEDS. HELD BP MEDS FOR POSSIBLE HD TODAY. BP IS STABLE AT 120/55
--- NOTE | 2017-10-13 10:37 | NUR ---
CONFIRMED WITH LOOM CHECKER, NO DIALYSIS TODAY. SPOKE WITH PATIENT AND SHE WOULD LIKE TO HOLD BP MEDS FOR NOW. RISKS AND BENEFITS EXPLAINED THREE TIMES
[2017-10-13 10:52] LABS: IRON, SERUM 27 ug/dl (50-175); TOTAL IRON BINDING CAPACITY 148 ug/dl (250-450)
[2017-10-13] MEDS ORDERED: EPOETIN ALFA (20,000 UNIT) 20,000 UNIT/ML VIAL SQ ONE (11:00)
[2017-10-13 11:05] LABS: FERRITIN 597 ng/mL (8-388)
[2017-10-13] MEDS: INSULIN REGULAR, HUMAN 100 UNIT/ML 3 ML VIAL SQ PRN ×2 (12:11→21:58)
[2017-10-13 16:00] VITALS: BP 121/76
--- NOTE | 2017-10-13 18:32 | NUR ---
RN CLOSING NOTES PATIENT IN IN BED. ALERT AND ORIENTED TO NAME, PLACE AND TIME. NO SIGNS AND SYMPTOMS OF DISTRESS. NO HD TODAY, POSSIBLY TOMORROW. KEPT PATIENT CLEAN, DRY AND SAFE. NO ACUTE CHANGES DURING MY SHIFT. ALL NURSING CARE ANTICIPATED AND ATTENDED FOR. BED IN LOW POSITION, LOCKED AND TWO SIDE RAILS ARE UP. CALL LIGHT WITHIN REACH FOR SAFETY. WILL ENDORSE TO STYLE ADVISOR RN FOR ENDER.
--- NOTE | 2017-10-13 19:20 | NUR ---
MS/RN NOTES RECEIVED PT. LYING IN BED. PT. IS AWAKE, ALERT AND ORIENTED X4. BREATHING EVEN AND UNLABORED ON 2LPM O2 VIA NC. NO SOB, RESPIRATORY DISTRESS OR COMPLAINTS OF PAIN NOTED AT THIS TIME. PT. WITH RIGHT AC 22 GAUGE IV SALINE LOCK PRESENT, PATENT AND INTACT. PT. WITH FRIEND PRESENT AT BEDSIDE. BED LOCKED AND IN LOWEST POSITION, SIDE RAILS UP X2, CALL LIGHT WITHIN REACH, WILL CONTINUE TO MONITOR.
[2017-10-13 20:21] VITALS: BP 126/51
[2017-10-13] MEDS: PRAMIPEXOLE DI-HCL 0.25 MG TABLET PO SCH (21:55)
[2017-10-14] VITALS (7 sets, daily range): BP systolic 110–132; BP diastolic 40–71
[2017-10-14] MEDS: ACETAMINOPHEN 325 MG TABLET PO SCH ×4 (05:00→22:38)
[2017-10-14 06:45] LABS: BASOPHILS % (AUTO) 0.2 % (0.0-2.0); EOSINOPHILS # (AUTO) 0.3 /CMM (0.0-0.7); EOSINOPHILS % (AUTO) 3.9 % (0.0-6.0); HEMATOCRIT 23 % (33-45); HEMOGLOBIN 7.9 g/dL (11.5-14.8); LYMPHOCYTES # (AUTO) 1.1 /CMM (0.8-4.8); MEAN CORPUSCULAR HEMOGLOBIN 31 PG (26.0-33.0); MEAN CORPUSCULAR HGB CONC 34 g/dl (31.0-36.0); MEAN CORPUSCULAR VOLUME 93 fL (82-100); MONOCYTES # (AUTO) 0.7 /CMM (0.1-1.30); MONOCYTES % (AUTO) 11.2 % (2.0-12.0); NEUTROPHILS # (AUTO) 4.4 /CMM (1.8-8.9); NEUTROPHILS % (AUTO) 67.7 % (43.0-81.0); PLATELET COUNT (AUTO) 153 /CMM (150-450); RDW COEFFICIENT OF VARIATION 17.2 (11.5-15.0); RED BLOOD CELL COUNT(AUTO) 2.52 MIL/uL (4.0-5.2); WHITE BLOOD COUNT (AUTO) 6.5 K/uL (4.3-11.0)
[2017-10-14 06:54] LABS: CALCIUM, SERUM 7.6 mg/dL (8.5-10.1); CARBON DIOXIDE 30 mmol/L (21-32); CHLORIDE 103 mmol/L (98-107); GLUCOSE 132 mg/dL (74-106); POTASSIUM 4.1 mmol/L (3.5-5.1); SODIUM SERUM 138 mmol/L (136-145); UREA NITROGEN, BLOOD 58 mg/dL (7-18)
--- NOTE | 2017-10-14 06:56 | NUR ---
MS/RN NOTES PT. IS LYING IN BED RESTING. BREATHING EVEN AND UNLABORED ON 2LPM O2 VIA NC. NO SOB, RESPIRATORY DISTRESS OR COMPLAINTS OF PAIN NOTED AT THIS TIME. PT. WITH RIGHT AC 22 GAUGE IV SALINE LOCK PRESENT, PATENT AND INTACT. ALL PT. NEEDS MET. BED LOCKED AND IN LOWEST POSITION, SIDE RAILS UP X2, CALL LIGHT WITHIN REACH, WILL ENDORSE TO DAYSHIFT NURSE FOR CONTINUITY OF CARE.
[2017-10-14] MEDS: BLOOD SUGAR DIAGNOSTIC 1 EACH STRIP IN SCH ×4 (07:47→21:06)
[2017-10-14] MEDS: INSULIN REGULAR, HUMAN 100 UNIT/ML 3 ML VIAL SQ PRN ×3 (07:48→17:13)
--- NOTE | 2017-10-14 08:08 | NUR ---
MS RN: INITIAL NOTE RECEIVED PT A/OX4. ON HD. NO ORDER FOR DIALYSIS YET. USES BED PAIN. S/P R HIP IM RODDING DUE TO [facility]. [facility] #22 SL. R FEMORAL HD CATH PLACED. DRESSING INTACT. NO REDNESS OR BLEEDING NOTED. NO IV FLUIDS RUNNING.NO DISTRESS NOTED. NO SOB NOTED. NO PAIN NOTED. RESTING COMFORTABLY IN BED. CALL LIGHT WITHIN REACH.
[2017-10-14] MEDS: CARVEDILOL 12.5 MG TABLET PO SCH ×2 (09:00→21:04)
[2017-10-14] MEDS: ISOSORBIDE MONONITRATE (30MG) 30 MG TAB.SR.24H PO SCH (09:00)
[2017-10-14] MEDS: ASPIRIN 81 MG TAB.CHEW PO SCH (09:35)
[2017-10-14] MEDS: LINAGLIPTIN 5 MG TABLET PO SCH (09:35)
[2017-10-14] MEDS: TRAMADOL HCL 50 MG TABLET PO PRN (09:35)
[2017-10-14] MEDS: CLOPIDOGREL BISULFATE 75 MG TABLET PO SCH (09:35)
[2017-10-14] MEDS: SEVELAMER CARBONATE 800 MG TABLET PO SCH ×3 (09:35→17:06)
[2017-10-14] MEDS: FUROSEMIDE 40 MG/4 ML VIAL IV SCH ×2 (09:35→17:05)
[2017-10-14] MEDS: DOCUSATE SODIUM 100 MG CAPSULE PO SCH ×2 (09:35→17:06)
[2017-10-14] MEDS ORDERED: EPOETIN ALFA (10,000 UNIT) 10,000 UNIT/ML VIAL IV ONE (10:00)
--- NOTE | 2017-10-14 10:04 | NUR ---
HELD ISOBRIDE AND CARVIDOLOL DUE TO SCHEDULED DIALYSIS.
--- NOTE | 2017-10-14 12:38 | NUR ---
REASSESSED BLOOD PRESSURE. 109/51, PULSE 60. NO BP MEDS GIVEN DUE TO SCHEDULED DIALYSIS.
[2017-10-14] MEDS ORDERED: SENN-167 PO (16:58)
[2017-10-14] MEDS ORDERED: TRAM50TA2 PO (16:58)
[2017-10-14] MEDS ORDERED: ASPI-1169 PO (16:58)
[2017-10-14] MEDS ORDERED: SEVE800T7 PO (16:58)
[2017-10-14] MEDS ORDERED: ACET325T53 PO (16:58)
[2017-10-14] MEDS ORDERED: DOCU-141 PO (16:58)
--- NOTE | 2017-10-14 17:41 | NUR ---
PT SET TO D.C TO [facility] TODAY AT 9PM. PER CASE MANAGEMENT MARYAM AND TAMEKA RAMIREZ TO D/C PT AFTER RECEIVING 1 UNIT RBC AND DIALYSIS COMPLETE/ AND PT IS STABLE. DIALYSIS BEING DONE CURRENTLY. AWAITING FOR BLOOD TO BE READY. WILL ENDORSE TO NEXT SHIFT.
--- NOTE | 2017-10-14 18:29 | NUR ---
MS RN: CLOSING NOTE PT TOOK ALL MEDICATIONS ON TIME. NO ADVERSE REACTIONS NOTED. NO SOB NOTED. PAIN CONTROLLED WITH PAIN MEDICATIONS. AMBULATED WITH PT. ON DIALYSIS AT THE MOMENT. TO BE DISCHARGED TO [facility] AT 9PM TODAY AFTER DIALYSIS AND 1 UNIT OF BLOOD GIVEN. STILL WAITING FOR BLOOD TO BE READY TO ADMIN. R AC #[id number] HL. R FEMORAL HD CATH. SITE CLEAR AND PATENT. RESTING COMFORTABLY IN BED. CALL LIGHT WITHIN REACH.
--- NOTE | 2017-10-14 19:31 | NUR ---
1 UNIT BLOOD GIVEN THROUGH DIALYSIS.
--- NOTE | 2017-10-14 19:35 | NUR ---
RN NOTE; RECEIVED PT IN BED AWAKE AND ALERT W/ FAMILY AT THE BEDSIDE. BREATHING EVENLY, NO SOB. NAD. ANJEL WARM AND DRY. DRESSING ON R HIP CDI. S/P HD AND BLOOD TRANSFUSION W/ NO COMPLICATIONS. DISCHARGE PROCESS WAS EXPLAINED TO THE PT W/ UNDERSTANDING. NEEDS ATTENDED. BED LOW LOCKED. CALL LIGHT WITHIN REACH. WILL CONT TO MONITOR.
[2017-10-14] MEDS: PRAMIPEXOLE DI-HCL 0.25 MG TABLET PO SCH (21:03)
--- NOTE | 2017-10-14 21:47 | NUR ---
REPORT GIVEN TO JAMEY AT [facility].
--- NOTE | 2017-10-14 22:45 | NUR ---
PT WAS DISCHARGED IN STABLE CONDITION VIA GURNEY AND 2 chief [place] guide [place] [facility] [place] MEDICATED W/ HER ROUTINE TYLENOL W/ NO C/O PAIN OR DISCOMFORT. IV LINE D/C'D W/ NO COMPLICATIONS OR BLEEDING. HD CATH INTACT. VS: WNL. ALL D/C PAPERS GIVEN TO THE chief airport guide INCLUDING REPORTS. ALL BELONGINGS WERE PICKED UP BY THE PT AND THE CG.
== END 2017-10-14 22:40 | DRG 480 ==
LOC: ER 07:28 → TELE2 10:51 → MEDSG2 10:59
PROVIDERS: ADMIT Nurse Practitioner Acute Care; ATTEND Nurse Practitioner Acute Care
PROC: 0QS606Z Reposition Right Upper Femur with Intramedullary Internal Fixation Device, Open Approach (ICD-10-PCS; principal; 2017-10-06 08:26)
PROC: 30233N1 Transfusion of Nonautologous Red Blood Cells into Peripheral Vein, Percutaneous Approach (ICD-10-PCS; 2017-10-07)
PROC: 06HM33Z Insertion of Infusion Device into Right Femoral Vein, Percutaneous Approach (ICD-10-PCS; 2017-10-11)
PROC: B54BZZA Ultrasonography of Right Lower Extremity Veins, Guidance (ICD-10-PCS; 2017-10-11)
PROC: 5A1D70Z Performance of Urinary Filtration, Intermittent, Less than 6 Hours Per Day (ICD-10-PCS; 2017-10-11)
PROC: 5A1D70Z Performance of Urinary Filtration, Intermittent, Less than 6 Hours Per Day (ICD-10-PCS; 2017-10-12)
PROC: 5A1D70Z Performance of Urinary Filtration, Intermittent, Less than 6 Hours Per Day (ICD-10-PCS; 2017-10-14)
DX: S72.141A Displaced intertrochanteric fracture of right femur, initial encounter for closed fracture (principal); N18.6 End stage renal disease; N17.9 Acute kidney failure, unspecified; D69.6 Thrombocytopenia, unspecified; E87.5 Hyperkalemia; E11.22 Type 2 diabetes mellitus with diabetic chronic kidney disease; E83.39 Other disorders of phosphorus metabolism; I12.0 Hypertensive chronic kidney disease with stage 5 chronic kidney disease or end stage renal disease; D62 Acute posthemorrhagic anemia; D63.8 Anemia in other chronic diseases classified elsewhere; W01.0XXA Fall on same level from slipping, tripping and stumbling without subsequent striking against object, initial encounter; Y92.009 Unspecified place in unspecified non-institutional (private) residence as the place of occurrence of the external cause; I25.119 Atherosclerotic heart disease of native coronary artery with unspecified angina pectoris; G25.81 Restless legs syndrome; Z98.1 Arthrodesis status; D72.829 Elevated white blood cell count, unspecified; R74.0 Nonspecific elevation of levels of transaminase and lactic acid dehydrogenase [LDH]; I25.10 Atherosclerotic heart disease of native coronary artery without angina pectoris; Z79.84 Long term (current) use of oral hypoglycemic drugs; Y93.9 Activity, unspecified; Z95.810 Presence of automatic (implantable) cardiac defibrillator; Z98.61 Coronary angioplasty status; Z99.2 Dependence on renal dialysis
CPT/HCPCS: 36415; 71045-TC; 72170-TC; 73501; 73502; 73552; 80048-TC; 80053-TC; 80061-TC; 81000-TC; 82306; 82570-TC; 82652; 82728-TC; 82947-TC; 82962-TC; 83540-TC; 83735-TC; 83970; 84100-TC; 84443-TC; 85025-TC; 85730-TC; 86704; 86705; 86706; 86803; 86850-TC; 86921-TC; 87081-TC; 87086-TC; 87340; 90935-TC; 93307-TC; 94799-TC; 97110-TC; 97116-TC; 97530-TC; A4606; A6209; A6402; C1713; C1750; C1751; J0690; J0885; J1100; J1170; J1815; J1885; J1940; J2405; J3475; J3490; J7030; J7040; J7050; J7060; P9016-BL; Z7610